=== PATIENT | female | born 1955 | race Asian ===

== ENCOUNTER 2018-07-21 10:53 | Inpatient (IN) | payer OTHER ==
[~2018-07-21] VITALS: Ht 152.4 cm; Wt 68.0 kg
--- NOTE | 2018-07-21 10:56 | NUR ---
pt ambulated to er bed 03
[2018-07-21 11:00] VITALS: BP 186/91
--- NOTE | 2018-07-21 11:06 | NUR ---
BIB DAUGHTER SEND BY PMD WITH C/O ABDNORMAL LAB VALUES HGB 6.4, CRP 24, ESR 87 ACCOMPANIED BY GENERALYZED WEAKNESS AND FATIGUE WITH NAUSEA. SKIN PALE/YELLOW IN COLOR, DENIES FEVERS/CHILLS. RESP EVEN AND UNLABORED, IN NAD. DTR AT BEDSIDE. ABD ROUND, SOFT, NT TO PALPATION. AWAITING ER MD WORLEY. HX; HTN RX; DENIES
--- NOTE | 2018-07-21 11:23 | NUR ---
DR SALDIVAR IN ROOM FOR RECTAL EXAM, I WAS IN ROOM FOR ASSIST.
[2018-07-21 11:41] LABS: MEAN CORPUSCULAR HEMOGLOBIN 31 pg (27-31); MEAN CORPUSCULAR HGB CONC 32 g/dL (33-37); MEAN CORPUSCULAR VOLUME 96.7 fL (80-94); PLATELET COUNT (AUTO) 174 K/uL (140-450); RED BLOOD CELL COUNT(AUTO) 1.97 MIL/uL (4.20-5.40); RED CELL DISTRIBUTION WIDTH 17.3 % (11.6-13.7); WHITE BLOOD COUNT (AUTO) 3.6 K/uL (4.8-10.8)
[2018-07-21 12:02] LABS: HEMATOCRIT 19.1 % (36-48); HEMOGLOBIN 6.2 g/dL (12.0-16.0)
[2018-07-21 12:03] LABS: ANION GAP 7.5 (8-16); CARBON DIOXIDE 27.7 mmol/L (21-32); CREATININE 0.9 mg/dL (0.6-1.3); POTASSIUM 4.2 mmol/L (3.5-5.1)
[2018-07-21 12:09] LABS: ALBUMIN 2.9 g/dL (3.4-5.0); PROTHROMBIN TIME 10.1 secs (10.8-13.4); TOTAL BILIRUBIN 0.3 mg/dL (0.0-1.0)
[2018-07-21] MEDS ORDERED: NACL 0.9% 1,000 ML IV SCH (12:21)
[2018-07-21] MEDS ORDERED: ONDANSETRON 4 MG/2 ML VIAL IVP PRN (12:25)
[2018-07-21 12:55] LABS: APPEARANCE,URINE CLEAR (CLEAR); BILIRUBIN,URINE NEGATIVE (NEGATIVE); BLOOD, URINE NEGATIVE (NEGATIVE); COLOR,URINE YELLOW (YELLOW); LEUKOCYTE ESTERASE ,URINE NEGATIVE (NEGATIVE); NITRITE, URINE NEGATIVE (NEGATIVE); UGLUCOSE NEGATIVE (NEGATIVE)
--- NOTE | 2018-07-21 13:30 | NUR ---
Patient will be admitted to care of DR MCCAULEY. Admited to M/S Will go to room 106A Belongings list completed. Report to .
--- NOTE | 2018-07-21 13:35 | NUR ---
RECEIVED BEDSIDE REPORT FROM ER NURSE. PATIENT IS AWAKE, ALERT AND ORIENTEDX4. NO SIGNS OF DISTRESS ON ROOM AIR. GAIT IS STEADY. ADMISSION VITALS ARE STABLE. REG DIET. R FA 20G INFUSING NS AT 75. CLEAN, DRY AND INTACT. BED IN LOW POSITION. CALL LIGHT WITHIN REACH. WILL CONTINUE TO MONITOR THE PATIENT. MRSA DONE. PATIENT REFUSES SOCKS, SHE WANTS TO USE HER SLIPPERS.
[2018-07-21 13:57] LABS: EOSINOPHILS % (MANUAL) 1 % (0-4); LYMPHOCYTES % (MANUAL) 64 % (20-46); MONOCYTES % (MANUAL) 22 % (5-12)
[2018-07-21 14:00] VITALS: BP 145/75
--- NOTE | 2018-07-21 14:10 | NUR ---
ADMINISTERED IVF. PATIENT TOLERATING WELL. IV IS CLEAN, DRY AND INTACT. WILL CONTINUE TO MONITOR THE PATIENT
--- NOTE | 2018-07-21 14:38 | NUR ---
PATIENT WALKING TO THE RESTROOM. GAIT IS STEADY. WILL CONTINUE TO MONITOR
[2018-07-21 16:00] VITALS: BP 126/84
--- NOTE | 2018-07-21 16:05 | NUR ---
GAVE PATIENT PRUNE JUICE AND APPLE JUICE. PER PATIENTS DAUGHTER SHE HAS NOT HAD A BM IN 1 WEEK AND THAT SHE HAS LOW INTAKE BUT THAT IS HER NORMAL. PATIENT DRINKING JUICE. BED IN LOW POSITION. CALL LIGHT WITHIN REACH, WILL CONTINUE TO MONITOR
--- NOTE | 2018-07-21 16:43 | NUR ---
PATIENT SITTING IN BED WATCHING TV. NO SIGNS OF DISTRESS. BED IN LOW POSITION. CALL LIGHT WITHIN REACH. WILL CONTINUE TO MONITOR
--- NOTE | 2018-07-21 19:15 | NUR ---
GAVE BEDSIDE REPORT TO HOSPITAL LABORATORY TECHNICIAN NURSE. PATIENT ENDORSED IN STABLE CONDITION
--- NOTE | 2018-07-21 19:20 | NUR ---
RECEIVED PT FROM TATYANA RN PT AAOX4 AMBULATORY ,NOT DISTRESS NOTED FAMILY AT BED SIDE
[2018-07-21 20:00] VITALS: BP 150/75
--- NOTE | 2018-07-21 22:00 | NUR ---
PT AMULATES TOTHE RESTROOM NOT DISTRESS NOTED
[2018-07-22] VITALS: BP 174/83
[2018-07-22] MEDS: ACETAMINOPHEN 325 MG TAB PO PRN (00:21)
--- NOTE | 2018-07-22 00:50 | NUR ---
DR MCMILLAN RETAIL ROUTE SUPERVISOR FOR DR MCCAULEY WAS NOTIFY PT HIGH BP
[2018-07-22 01:30] VITALS: BP 151/58
[2018-07-22 04:00] VITALS: BP 152/76
--- NOTE | 2018-07-22 04:00 | NUR ---
SPONGE BATH GIVEN LINEN CHANGED REPOSITIONED DENIES ANY PAIN OR DISCOMFORT AMBULATORY
--- NOTE | 2018-07-22 05:33 | NUR ---
PT SLEEPING WELL MONITORING BP NOT DISTRESS NOTED NOT SIGNS OF PAIN
--- NOTE | 2018-07-22 06:18 | NUR ---
REMAIN STALE DENIES ANY PAIN OR DISCOMFORT AMBULATES TO THE RESTROOM VOIDING WELL
[2018-07-22 07:12] LABS: MEAN CORPUSCULAR HEMOGLOBIN 32 pg (27-31); MEAN CORPUSCULAR HGB CONC 33 g/dL (33-37); MEAN CORPUSCULAR VOLUME 96.6 fL (80-94); PLATELET COUNT (AUTO) 173 K/uL (140-450); RED BLOOD CELL COUNT(AUTO) 1.85 MIL/uL (4.20-5.40); RED CELL DISTRIBUTION WIDTH 17.1 % (11.6-13.7); WHITE BLOOD COUNT (AUTO) 3.1 K/uL (4.8-10.8)
[2018-07-22 07:16] LABS: HEMOGLOBIN 5.9 g/dL (12.0-16.0)
[2018-07-22 07:17] LABS: HEMATOCRIT 17.9 % (36-48)
--- NOTE | 2018-07-22 07:25 | NUR ---
RECEIVED REPORT FRO PM NURSE AT THE BEDSIDE. PT AWAKE AND ALERT. HAS THE IV SITE ON RT FA 20 G.ADMITTED WITH DX OF SYMPTOMATIC ANEMIA. GOT CALL FROM LAB REGARDING H&H. HGB 5.9, HCT 17.9. WILL INFORM DR MCCAULEY. PER PM NURS3E, NO BLOOD TRANSFUSION HAS BEEN DONE IN PT. STATES , YET TO SEE THE PT.ON FALL RISK. PLACE CALL LIGHT WITHIN PT REACH. ASKED PT TO USE CALL LIGHT FOR ANY HELP. VERBALIZED UNDERSTANDING OF TEACHING. WILL CONTINUE TO MONITOR PT.
[2018-07-22 07:27] LABS: ALBUMIN 2.7 g/dL (3.4-5.0); ANION GAP 10.2 (8-16); CARBON DIOXIDE 26.8 mmol/L (21-32); CREATININE 0.8 mg/dL (0.6-1.3); TOTAL BILIRUBIN 0.3 mg/dL (0.0-1.0)
--- NOTE | 2018-07-22 07:40 | NUR ---
DR MCCAULEY NOTIFIED OF CRITICAL VALUE FOR H&H. TO SEE THE PT. MADE AWARE OF THE HIGH BP . WILL CONTINUE TO MONITOR PT.
[2018-07-22 07:45] LABS: BASOPHILS % (MANUAL) 0 % (0-2); EOSINOPHILS % (MANUAL) 2 % (0-4); LYMPHOCYTES % (MANUAL) 60 % (20-46); MONOCYTES % (MANUAL) 20 % (5-12)
[2018-07-22 08:00] VITALS: BP 179/74
--- NOTE | 2018-07-22 08:10 | NUR ---
INFORMED PT THAT SHE NEEDS TO HAVE BLOOD TRANSFUSION.ASKED IF SHE CAN SIGN THE CONSENT FORM. PT WANTED TO TALK TO HER DAUGHTER BEFORE SHE SIGNS THE CONSENT FORM. DAUGHTER CONTACTED TWICE. WILL TRY AGAIN LATER. PT HAS ORDER FOR BLOOD TRANSFUSION.
--- NOTE | 2018-07-22 08:15 | NUR ---
DAUGHTER YANI CALLED. LUCIEN FOR BLOOD TRANSFUSION. TALKED TO MOTHER. PT SIGNED THE CONSENT FORM. WILL WORK ON BLOOD TRANSFUSION ON PT.
[2018-07-22] MEDS: amLODIPine 5 MG TAB PO SCH (09:10)
--- NOTE | 2018-07-22 11:10 | NUR ---
ASSESSED PT , HAVING BLOOD TRANSFUSION. BP 166/65, HR 73, T 97.6, RR 18, PAIN 0/10. ADMINISTERED CLONIDINE TO PT. WILL REASSESS PT IN HALF HOUR AGAIN. NO SIGN OF DISTRESS. PT TOLERATING WELL. WILL CONTINUE TO MONITOR PT.
[2018-07-22] MEDS: cloNIDine 0.1 MG TAB PO PRN (11:13)
--- NOTE | 2018-07-22 11:18 | NUR ---
BLOOD TRANSFUSION STARTED AT 1040 . VERIFIED WITH SECOND NURSE THE BLOOD PRODUCT. PRE VS NOTED T 98.0, , HR 74, R 14, PO2 SAT 985 RA, BP 155/72. BLOOD INFUSING WELL. NO SIGN OF DISTRESS NOTED. PT IN CONTINUOS MONITORING BLOOD TRANSFUSION PROTOCOL. PT TOLERATING WELL [id number] THE INFORMATION CHARTED ON WRONG PT, ON 104 A.
--- NOTE | 2018-07-22 11:40 | NUR ---
CHECKED ON PT. VS NOTED BP 168/64, T 98.4, RR 16, HR 70, PAIN 0/10. INCREASED HER INFUSION FROM 60 ML/HR TO 100 ML/HR. WILL CONTINUE TO MONITOR.
--- NOTE | 2018-07-22 13:40 | NUR ---
BLOOD INFUSION COMPLETED AT 1340. WAITING FOR THE BLOOD IN THE TUBING TO BE DONE . VS NORMAL NOTED BP 130/67, HR 74, PAIN 0/10, O2 SAT 98%RA, RR 16. PT WENT TO USE RESTROOM. NO SIGN OF DISTRESS NOTED. WILL INFUSE SECOND BAG OF INFUSION . WILL CONTINUE TO MONITOR PT.
--- NOTE | 2018-07-22 15:45 | NUR ---
STARTED BLOOD TRANSFUSION SECOND BAG TO THE PT. TOLERATED WELL. SECOND NURSE [place] VERIFIED THE BLOOD PRODUCT. VS NOTED BEFORE TRANSFUSION ARE BP 139/59, T 98.5, O2 SAT 97%, RR 18, HR 70. NO SIGN OF DISTRESS NOTED DURING THE TRANSFUSION OF THE BLOOD . WILL CONTINUE TO MONITOR PT BLOOD TRANSFUSION PROTOCOL.
[2018-07-22 16:00] VITALS: BP 136/74
--- NOTE | 2018-07-22 16:00 | NUR ---
VS NOTED BP 136/74, HR 73, RR 16, T 98.5, DENIES ANY PAIN. PT O2 SAT 98%. NO SIGN OF DISTRESS. WILL CONTINUE ASSESSING PT BLOOD TRANSFUSION PROTOCOL.
--- NOTE | 2018-07-22 18:45 | NUR ---
BLOOD TRANSFUSION TIME OF COMPLETION 1844. IV TUBING INFUSING AT THIS TIME. NO SIGN OF DISTRESS. WILL CONTINUE TO MONITOR PT.
--- NOTE | 2018-07-22 19:30 | NUR ---
ENDORSED PT TO PM NURSE FOR CONTINUITY OF CARE. PT IN STABLE CONDITION. PT BLOOD TRANSFUSION OF SECOND BAG COMPLETED AT 1845. NO SIGN OF DISTRESS. ENDORSED THIRD BAG OF BLOOD TRANSFUSION TO PM NURSE.
--- NOTE | 2018-07-22 19:31 | NUR ---
RECEIVED PT FROM DAY SHIFT NURSE JORGE-RN AT BEDSIDE. PT RESTING IN BED, AOX4, ON ROOM AIR WITH RIGHT FA #20G. DISCUSSED PLAN OF CARE AND PT VERBALIZED UNDERSTANDING. NO S/S OF RESPIRATORY DISTRESS OR DISCOMFORT NOTED AT THIS TIME. BED IN LOWEST POSITION, BED BREAKS ON, BOTH SIDE RAILS UP. BED SIDE TABLE AND CALL LIGHT ARE WITHIN REACH. WILL CONTINUE TO MONITOR.
[2018-07-22 20:00] VITALS: BP 138/64
--- NOTE | 2018-07-22 20:00 | NUR ---
VITAL SIGNS TAKEN AND TOLERATED WELL. NO S/S OF RESPIRATORY DISTRESS OR DISCOMFORT NOTED AT THIS TIME. WILL CONTINUE TO MONITOR.
--- NOTE | 2018-07-22 22:13 | NUR ---
THIRD BAG OF RBC STARTED. PT TOLERATING WELL. NO S/S OF RESPIRATORY DISTRESS OR DISCOMFORT NOTED AT THIS TIME. WILL CONTINUE TO MONITOR.
[2018-07-23] VITALS: BP 166/78
--- NOTE | 2018-07-23 01:05 | NUR ---
BLOOD TRANSFUSION HAS COMPLETED. NO S/S OF RESPIRATORY DISTRESS OR DISCOMFORT. BP HAD STEADILY ELEVATED AND WILL MEDICATE WITH CATAPRES. PT C/O HEADACHE- WILL MEDICATE WITH TYLENOL. WILL CONTINUE TO MONITOR.
[2018-07-23] MEDS: ACETAMINOPHEN 325 MG TAB PO PRN (01:16)
[2018-07-23] MEDS: cloNIDine 0.1 MG TAB PO PRN (01:28)
--- NOTE | 2018-07-23 02:00 | NUR ---
PT SLEEPING IN BED. NO S/S OF RESPIRATORY DISTRESS OR DISCOMFORT NOTED AT THIS TIME. WILL CONTINUE TO MONITOR.
--- NOTE | 2018-07-23 04:00 | NUR ---
PT CONTINUES TO SLEEP. NO S/S OF RESPIRATORY DISTRESS OR DISCOMFORT NOTED AT THIS TIME. WILL CONTINUE TO MONITOR
--- NOTE | 2018-07-23 06:00 | NUR ---
PT RESTING IN BED. NO S/S OF RESPIRATORY DISTRESS OR DISCOMFORT NOTED AT THIS TIME. WILL CONTINUE TO MONITOR.
[2018-07-23 06:38] LABS: HEMATOCRIT 31.6 % (36-48); HEMOGLOBIN 10.6 g/dL (12.0-16.0); MEAN CORPUSCULAR HEMOGLOBIN 30 pg (27-31); MEAN CORPUSCULAR HGB CONC 34 g/dL (33-37); MEAN CORPUSCULAR VOLUME 89.3 fL (80-94); PLATELET COUNT (AUTO) 157 K/uL (140-450); RED BLOOD CELL COUNT(AUTO) 3.54 MIL/uL (4.20-5.40); RED CELL DISTRIBUTION WIDTH 19.1 % (11.6-13.7); WHITE BLOOD COUNT (AUTO) 3.5 K/uL (4.8-10.8)
[2018-07-23 06:58] LABS: ALBUMIN 2.9 g/dL (3.4-5.0); ANION GAP 8.4 (8-16); CARBON DIOXIDE 28.8 mmol/L (21-32); CREATININE 0.9 mg/dL (0.6-1.3); POTASSIUM 4.2 mmol/L (3.5-5.1); TOTAL BILIRUBIN 0.6 mg/dL (0.0-1.0)
[2018-07-23 07:11] LABS: EOSINOPHILS % (MANUAL) 1 % (0-4); LYMPHOCYTES % (MANUAL) 65 % (20-46); MONOCYTES % (MANUAL) 14 % (5-12)
--- NOTE | 2018-07-23 07:14 | NUR ---
ENDORSED PT CARE TO DAY SHIFT NURSE SITAL-RN FOR CONTINUITY OF CARE.
[2018-07-23 08:00] VITALS: BP 119/74
[2018-07-23] MEDS: amLODIPine 5 MG TAB PO SCH (08:43)
[2018-07-23] MEDS ORDERED: MULT1SGL58 PO (09:10)
--- NOTE | 2018-07-23 10:31 | NUR ---
PATIENT HAS BEEN SCREENED AND CATEGORIZED MODERATE NUTRITION RISK. PATIENT WILL BE SEEN WITHIN 3-5 DAYS OF ADMISSION. 07/24/18 07/26/18 BRIANNA DAVIS MBA, RD
--- NOTE | 2018-07-23 12:00 | NUR ---
CHECKED ON PT. LYING ON HER BED. INFORMED HER THAT DC ORDER ARE AVAILABLE. WILL WORK ON HER DC PAPER. PT TO CALL THE FAMILY MEMBER FOR RIDE. PT STABLE. HAD BOWEL MOVEMENT . WILL CONTINUE TO MONITOR PT.
--- NOTE | 2018-07-23 14:30 | NUR ---
PT SIGNED THE DC PAPER. EDUCATED HER TO EAT THE FOOD THAT ARE RICH IN IRON THAT WILL HELP TO PREVENT ANEMIA. INFORMED TO DRINK PLENTY OF FRUITS AND VEGETABLES AND WATER TO AVOID CONSTIPATION. INFORMED PT TO FOLLOW UP WITH DR MCCAULEY PER DC INSTRUCTION AND TO FOLLOW UP WITH PCP IN 1-2 WEEKS OF DC. VERBALIZED UNDERSTANDING. PT WENT HOME WITH ALL HER BELONGINGS. PT IN STABLE CONDITION.
--- NOTE | 2018-07-24 08:17 | NUR ---
RETRO REVIEW FAXED TO [facility] NO DISCHARGE SUMMARY
[2018-07-25 06:21] LABS: FOLIC ACID > 20.00 ng/mL (>3.0)
--- NOTE | 2018-07-27 08:08 | NUR ---
FAXED DISCHARGE SUMMARY TO [facility] [phone]
== END 2018-07-23 14:30 | disposition home or self-care (01) | DRG 663 ==
LOC: MED 10:53 → MTU 13:08
PROVIDERS: ADMIT Internal Medicine; ATTEND Internal Medicine
PROC: 30233N1 Transfusion of Nonautologous Red Blood Cells into Peripheral Vein, Percutaneous Approach (ICD-10-PCS; principal; 2018-07-22)
DX: D53.9 Nutritional anemia, unspecified (principal); E44.0 Moderate protein-calorie malnutrition; D72.819 Decreased white blood cell count, unspecified; E66.9 Obesity, unspecified; I12.9 Hypertensive chronic kidney disease with stage 1 through stage 4 chronic kidney disease, or unspecified chronic kidney disease; N18.2 Chronic kidney disease, stage 2 (mild); Z68.29 Body mass index [BMI] 29.0-29.9, adult
CPT/HCPCS: 36415; 71045; 80053; 81003; 81025; 82607; 82746; 83540; 83880; 84484; 85025; 85610; 85730; 86886; 86900; 86901; 86920; 87081; 93005; 99285; J7030; P9016

== ENCOUNTER 2019-04-07 17:12 | Inpatient (IN) | payer OTHER ==
[~2019-04-07] VITALS: Ht 149.9 cm; Wt 73.0 kg
[~2019-04-07 17:12] MED LIST: MULT1SGL58 PO
[2019-04-07 17:19] VITALS: BP 161/79
--- NOTE | 2019-04-07 17:50 | NUR ---
63 Y FEMALE BIB FAMILY C/O FATIGUE X2 WEEKS. PT REPORTS STRETCHING EARLIER TODAY AND FEELING LIKE HER WHOLE BODY WAS ABOUT TO GIVE. PT REPORTS LIKE SHE IS ABOUT TO FALL DOWN. PT REPORTS BEING CONSTIPATED X2 WEEKS. DENIES PAIN. PT DENIES SOB, CP, NUMBNESS. PT SPEAKING IN FULL, COMPLETE SENTENCES. LANGUAGE BARRIER, FAMILY PRESENT TO TRANSLATE. PT ALERT AND ORIENTED X4. VSS. PT PLACED ON MONITOR. BED IS DOWN, LOCKED, BED RIAL X 1, ERMD TO SEE PT. MEDHX:HLD, HTN RX:DENIES
--- NOTE | 2019-04-07 17:54 | NUR ---
PT AMB TO RESTROOM FOR URINE SAMPLE
[2019-04-07] MEDS ORDERED: NACL 0.9% 1,000 ML IV ONE (18:10)
--- NOTE | 2019-04-07 18:13 | NUR ---
XRAY AT BEDSIDE
[2019-04-07 18:33] LABS: BASOPHILS % (AUTO) 0.3 % (0.0-2.0); EOSINOPHILS % (AUTO) 0.6 % (0.0-4.0); LYMPHOCYTES # (AUTO) 2.7 K/uL (2.5-16.5); LYMPHOCYTES % (AUTO) 64.7 % (20.5-51.1); MEAN CORPUSCULAR HEMOGLOBIN 32 pg (27-31); MEAN CORPUSCULAR HGB CONC 33 g/dL (33-37); MEAN CORPUSCULAR VOLUME 95.3 fL (80-94); MONOCYTES # (AUTO) 0.9 K/uL (0.8-1.0); MONOCYTES % (AUTO) 21.4 % (1.7-9.3); NEUTROPHILS # (AUTO) 0.5 K/uL (1.8-7.7); PLATELET COUNT (AUTO) 159 K/uL (140-450); RED CELL DISTRIBUTION WIDTH 17.2 % (11.6-13.7); WHITE BLOOD COUNT (AUTO) 4.2 K/uL (4.8-10.8)
--- NOTE | 2019-04-07 18:34 | NUR ---
EMT AT BEDSIDE FOR EKG
[2019-04-07 18:36] LABS: HEMATOCRIT 17.2 % (36-48); HEMOGLOBIN 5.7 g/dL (12.0-16.0)
--- NOTE | 2019-04-07 18:37 | NUR ---
HEMOGLOBIN 5.7 AND HEMATOCRIT 17.3
[2019-04-07 18:38] LABS: ANION GAP 10.3 (8-16); CARBON DIOXIDE 27.6 mmol/L (21-32); CREATININE 1.3 mg/dL (0.6-1.3); POTASSIUM 3.9 mmol/L (3.5-5.1)
[2019-04-07 18:44] LABS: TOTAL BILIRUBIN 0.4 mg/dL (0.0-1.0)
[2019-04-07 18:52] LABS: CREATINE KINASE MB 0.7 ng/mL (0-3.6)
--- NOTE | 2019-04-07 19:13 | NUR ---
REPORT GIVEN TO LUKE ALBRIGHT, TRANSFER OF CARE AT THIS TIME
[2019-04-07 21:35] VITALS: BP 151/60
--- NOTE | 2019-04-07 21:35 | NUR ---
Admitted from ER TO MED SURGICAL UNIT, with chief complaint of GENERALIZED WEAKNESS FOR 2 WEEKS NOW. 63 y/o ,Female, Cooperative, AWAKE, A/OX4. AMANDA SPEAKING ABLE TO UNDERSTAND AND SPEAK SOME [place]. COMPLETE ADMISSION DATA TAKEN WITH HELP OF MASTER AUTOMOTIVE GLASS TECHNICIAN LEIA, #[id number]. PATIENT UNDERSTAND HER HEMOGLOBIN IS LOW - 5.7, HCT - 17.2 AND SHE WILL BE HAVING BLOOD TRANSFUSION, CONSENT SIGNED IN ER. AMBULATING INDEPENDENTLY, SKIN INTACT. DENIES PAIN 0/10.oriented to call light, bed, phone,television, bathroom, smoking policy,visiting hours, procedures, ID bracelet on. Belongings list checked. Addendum: 04/08/19 at 0247 by Trisha Roa LVN CORRECTION: PATIENT IS MED SURG OBSERVATION CATEGORY.
--- NOTE | 2019-04-07 21:35 | NUR ---
Patient's Plan of Care was discussed and reviewed with DWIGHT: ALEXEI
--- NOTE | 2019-04-07 21:40 | NUR ---
Admited to Med-Surg. Patient went to room 111-B via wheelchair by RN, patient acting appropriatly; patient states 0/10 pain at this time. Belongings list completed. Report to JOSE RAMON Leung.
--- NOTE | 2019-04-07 21:48 | NUR ---
CALL TO PT DAUGHTER CAT, PT HAS BEEN ADMITTED TO BED 111-B IN STABLE CONDITION AND ACTING APPROPRIATLY.
--- NOTE | 2019-04-07 21:53 | NUR ---
CALL TO CHARGE NURSE ON MED-SURG FLOOR, PER PT DAUGHTERS REQUEST WOULD LIKE HER DAUGHTER TO GET A SANDWICH.
[2019-04-07] MEDS ORDERED: cloNIDine 0.1 MG TAB PO PRN (23:00)
--- NOTE | 2019-04-07 23:42 | NUR ---
CONSENT SIGNED AND IN CHART, BLOOD TRANSFUSION INFORMATION SIGNED AND LEFT AT BEDSIDE.
[2019-04-08] VITALS: BP 155/61
--- NOTE | 2019-04-08 00:10 | NUR ---
V/S STABLE, STARTED 1 UNIT OF BLOOD WITH CHARGE NURSE SAMIRA. 50 ML NS INFUSED IN PATIENT PRIOR TO BLOOD TRANSFUSION.
--- NOTE | 2019-04-08 01:00 | NUR ---
ASSISTED TO BR TO VOID, BACK TO BED AFTER VOIDING.
--- NOTE | 2019-04-08 02:00 | NUR ---
BLOOD TRANSFUSION STILL ON-GOING, WILL CONTINUE TO MONITOR FOR ANY ALLERGIC REACTION.
--- NOTE | 2019-04-08 03:10 | NUR ---
BLOOD TRANSFUSION FINISHED. NO ALLERGIC REACTION NOTED.
--- NOTE | 2019-04-08 03:15 | NUR ---
100 ML NS INFUSED WITH BLOOD TRANSFUSION, TOTAL OF 150 NS. SALINE LOCK PATIENT ORDERED.
[2019-04-08 04:00] VITALS: BP 154/79
--- NOTE | 2019-04-08 04:10 | NUR ---
STILL SLEEPING COMFORTABLY IN BED.
--- NOTE | 2019-04-08 05:30 | NUR ---
AWAKE, AMBULATED TO BR TO VOID, WENT BACK TO BED AFTER VOIDING.
--- NOTE | 2019-04-08 06:40 | NUR ---
AWAKE IN BED, INSTRUCTED TO CALL NURSE WHEN HAD A BM FOR OCCULT BLOOD TEST TO BE SENT TO LABORATORY. VERBALIZED UNDERSTANDING. CONDITION REMAIN STABLE. WILL ENDORSE TO AM SHIFT NURSE FOR CONTINUITY OF CARE.
--- NOTE | 2019-04-08 07:15 | NUR ---
ENDORSED TO AM SHIFT NURSE FOR CONTINUITY OF CARE.
--- NOTE | 2019-04-08 07:17 | NUR ---
RECEIVED BEDSIDE REPORT FROM PRESCRIPTIONIST NURSE ALEXEI FOR CONTINUITY OF CARE. PATIENT WAS AWAKE AND WATCHING TV ON BED. PATIENT IS AOX4. PATIENT IS ABLE TO MAKE NEEDS KNOWN AND FOLLOW SIMPLE COMMANDS. PATIENT DENIED PAIN AND SOB. RESPIRATION EVEN AND UNLABORED ON RA. NO SIGNS OF DISTRESS NOTED. IV ON RAC 20 G, NOT INFUSING AT THIS TIME, SL. SKIN INTACT AND CLEAN. PATIENT IS ABLE TO AMBULATE. DISCUSSED PLAN OF CARE WITH PATIENT AND PATIENT VERBALIZED UNDERSTANDING. SAFETY PRECAUTION IN PLACE. BED IN LOW POSITION AND CALL LIGHT WITHIN REACH. INSTRUCTED PATIENT TO USE THE CALL LIGHT FOR ANY ASSISTANCE, AND PATIENT VERBALIZED UNDERSTANDING.
[2019-04-08 07:56] LABS: BASOPHILS % (AUTO) 0.3 % (0.0-2.0); EOSINOPHILS % (AUTO) 0.5 % (0.0-4.0); HEMATOCRIT 20.9 % (36-48); HEMOGLOBIN 7.1 g/dL (12.0-16.0); LYMPHOCYTES # (AUTO) 2.1 K/uL (2.5-16.5); LYMPHOCYTES % (AUTO) 59.9 % (20.5-51.1); MEAN CORPUSCULAR HEMOGLOBIN 32 pg (27-31); MEAN CORPUSCULAR HGB CONC 34 g/dL (33-37); MEAN CORPUSCULAR VOLUME 93.2 fL (80-94); MONOCYTES # (AUTO) 0.9 K/uL (0.8-1.0); MONOCYTES % (AUTO) 25.1 % (1.7-9.3); NEUTROPHILS # (AUTO) 0.5 K/uL (1.8-7.7); NEUTROPHILS % (AUTO) 14.2 % (42.2-75.2); PLATELET COUNT (AUTO) 135 K/uL (140-450); RED BLOOD CELL COUNT(AUTO) 2.24 MIL/uL (4.20-5.40); RED CELL DISTRIBUTION WIDTH 16.3 % (11.6-13.7); WHITE BLOOD COUNT (AUTO) 3.5 K/uL (4.8-10.8)
[2019-04-08 08:00] VITALS: BP 178/74
[2019-04-08 08:05] LABS: ANION GAP 11.1 (8-16); CARBON DIOXIDE 26.2 mmol/L (21-32); CREATININE 0.9 mg/dL (0.6-1.3); POTASSIUM 4.3 mmol/L (3.5-5.1)
--- NOTE | 2019-04-08 08:43 | NUR ---
PATIENT HAS BEEN SCREENED AND CATEGORIZED MODERATE NUTRITION RISK. PATIENT WILL BE SEEN WITHIN 3-5 DAYS OF ADMISSION. 04/10/19KAELYN RAMESH RD
[2019-04-08] MEDS: DOCUSATE SODIUM 100 MG GELCAP PO SCH ×2 (08:48→21:38)
--- NOTE | 2019-04-08 08:49 | NUR ---
BP 178/74 AND PULSE 89, MEDICATED WITH CATARPES 0.1 MG PER MD ORDER. PATIENT TOLERATED WELL. PATIENT IS AWAKE AND WATCHING TV ON BED. DENIES OF PAIN AND DIZZINESS. NO SIGNS OF DISTRESS NOTED. INSTRUCTED PATIENT TO USE THE HAT IN THE TOILET WHEN SHE HAS BM TO COLLECT OCCULT BLOOD, AND PATIENT VERBALIZED UNDERSTANDING. BED IN LOW POSITION AND CALL LIGHT WITHIN REACH. INSTRUCTED PATIENT TO USE THE CALL LIGHT FOR ANY ASSISTANCE AND PATIENT WAS AWARE.
--- NOTE | 2019-04-08 11:08 | NUR ---
DR TUTTLE IS TALKING TO PATIENT AT BEDSIDE. PATIENT IS AWAKE AND SITTING UP ON BED. ABLE TO COMMUNICATE APPROPRIATELY. NO SIGNS OF DISTRESS NOTED. SAFETY MEASURES IN PLACE.
[2019-04-08 12:00] VITALS: BP 138/60
[2019-04-08] MEDS: FERROUS SULFATE 325 MG TABEC PO SCH ×2 (12:03→17:25)
--- NOTE | 2019-04-08 12:55 | NUR ---
ADMINISTERED MED MD ORDER, PATIENT TOLERATED WELL. PATIENT IS SITTING UP ON BED. NO SIGNS OF DISTRESS NOTED. SAFETY MEASURES IN PLACE.
--- NOTE | 2019-04-08 13:25 | NUR ---
PATIENT HAS A SMALL BM. COLLECTED OCCULT BLOOD AND DELIVERED TO LAB.
--- NOTE | 2019-04-08 15:25 | NUR ---
PATIENT IS TALKING TO DAUGHTER AT BEDSIDE. DENIES DIZZINESS AND SOB. NO SINGS OF DISTRESS NOTED. SAFETY MEASURES IN PLACE.
[2019-04-08 16:00] VITALS: BP 144/71
--- NOTE | 2019-04-08 17:26 | NUR ---
PATIENT IS RESTING ON BED AT THIS TIME. NO SIGNS OF DISTRESS NOTED. SAFETY MEASURES IN PLACE. INSTRUCTED PATIENT TO USE THE CALL LIGHT FOR ANY ASSISTANCE AND PATIENT WAS AWARE.
--- NOTE | 2019-04-08 18:15 | NUR ---
PICKED UP PACK OF RBC FROM LAB. VITAL SIGNS TAKEN PRIOR TO BLOOD TRANSFUSION. PATIENT IS AWAKE AND WATCHING TV ON BED. DENIES DIZZINESS, SOB AND PAIN. NO SIGNS OF DISTRESS NOTED. SAFETY MEASURES IN PLACE.
--- NOTE | 2019-04-08 18:30 | NUR ---
NO BLOOD TRANSFUSION ALLERGIC REACTION. PATIENT TOLERATED WELL. PATIENT IS RESTING ON BED. NO SIGNS OF DISTRESS NOTED. VITAL SIGNS WAS MONITORING Q15 MINS BY BEDSIDE. SAFETY MEASURES IN PLACE.
--- NOTE | 2019-04-08 19:20 | NUR ---
ENDORSED PATIENT AT BEDSIDE TO ETL INFORMATICA DEVELOPER NURSE FOR CONTINUITY OF CARE. PATIENT IS RESTING ON BED AT THIS TIME. NO SIGNS OF DISTRESS NOTED. VITAL SIGNS ARE WITHIN PATIENT'S REGULAR INTERVAL. VITAL SIGNS ARE BEING MONITOR ON VITAL SIGN MACHINE.
--- NOTE | 2019-04-08 19:22 | NUR ---
Received endorsement from AM shift RN; patient is A/Ox4, able to make needs known, ambulatory with assist, speaks Urdu Laotian. Patient watching TV; introduced self, updated board. No SOB or distress noted, on room air. IV site on right AC, 20 gauge, intact, running PRBC at 100mL/hr. Skin intact. Bed in the lowest position, call light within reach. Initial assessment done. Will continue to monitor.
--- NOTE | 2019-04-08 21:35 | NUR ---
Due meds given, no distress noted.
--- NOTE | 2019-04-08 22:00 | NUR ---
Blood transfusion completed at this time. Vitals stable.
[2019-04-09] VITALS: BP 146/67
--- NOTE | 2019-04-09 00:10 | NUR ---
Vitals taken, no SOB or distress noted.
--- NOTE | 2019-04-09 02:20 | NUR ---
Rounds made; patient asleep on left lateral side. No distress noted.
--- NOTE | 2019-04-09 04:55 | NUR ---
Checks made; patient asleep, eyes closed, visible chest rise and fall noted.
--- NOTE | 2019-04-09 07:15 | NUR ---
Endorsed patient to AM shift RN for continuity of care; patient in stable condition.
--- NOTE | 2019-04-09 07:25 | NUR ---
ECEIVED BEDSIDE REPORT FROM CIVIL PREPAREDNESS COORDINATOR NURSE FOR CONTINUITY OF CARE. PATIENT WAS AWAKE AND WATCHING TV ON BED. PATIENT IS AOX4. PATIENT IS ABLE TO MAKE NEEDS KNOWN AND FOLLOW SIMPLE COMMANDS. PATIENT DENIED PAIN AND SOB. RESPIRATION EVEN AND UNLABORED ON RA. NO SIGNS OF DISTRESS NOTED. IV ON RAC 20 G, NOT INFUSING AT THIS TIME, SL. SKIN INTACT AND CLEAN. PATIENT IS ABLE TO AMBULATE. DISCUSSED PLAN OF CARE WITH PATIENT AND PATIENT VERBALIZED UNDERSTANDING. SAFETY PRECAUTION IN PLACE. BED IN LOW POSITION AND CALL LIGHT WITHIN REACH. INSTRUCTED PATIENT TO USE THE CALL LIGHT FOR ANY ASSISTANCE, AND PATIENT VERBALIZED UNDERSTANDING.
[2019-04-09 08:00] VITALS: BP 155/68
[2019-04-09 08:09] LABS: HEMATOCRIT 27.2 % (36-48); HEMOGLOBIN 9.3 g/dL (12.0-16.0); MEAN CORPUSCULAR HEMOGLOBIN 32 pg (27-31); MEAN CORPUSCULAR HGB CONC 34 g/dL (33-37); MEAN CORPUSCULAR VOLUME 91.6 fL (80-94); PLATELET COUNT (AUTO) 135 K/uL (140-450); RED BLOOD CELL COUNT(AUTO) 2.96 MIL/uL (4.20-5.40); RED CELL DISTRIBUTION WIDTH 16.9 % (11.6-13.7); WHITE BLOOD COUNT (AUTO) 4.1 K/uL (4.8-10.8)
[2019-04-09 08:23] LABS: ALBUMIN 2.9 g/dL (3.4-5.0); CARBON DIOXIDE 26.2 mmol/L (21-32); TOTAL BILIRUBIN 0.5 mg/dL (0.0-1.0)
[2019-04-09] MEDS: DOCUSATE SODIUM 100 MG GELCAP PO SCH (08:44)
[2019-04-09] MEDS: FERROUS SULFATE 325 MG TABEC PO SCH ×2 (08:45→11:28)
--- NOTE | 2019-04-09 08:47 | NUR ---
ADMINISTERED MEDS PER MD ORDER, PATIENT TOLERATED WELL. PATIENT IS AWAKE AND RESTING ON BED AT THIS TIME. DENIES PAIN, DIZZINESS AND SOB. NO SIGNS OF DISTRESS NOTED. SAFETY MEASURES IN PLACE. CALL LIGHT WITHIN REACH. INSTRUCTED PATIENT TO USE THE CALL LIGHT FOR ANY ASSISTANCE AND PATIENT WAS AWARE.
[2019-04-09 08:52] LABS: ANION GAP 12.8 (8-16)
[2019-04-09 08:53] LABS: MONOCYTES % (MANUAL) 10 % (5-12)
[2019-04-09 08:54] LABS: LYMPHOCYTES % (MANUAL) 62 % (20-46)
[2019-04-09] MEDS ORDERED: FOLIC ACID 1 MG TAB PO SCH (09:00)
--- NOTE | 2019-04-09 11:30 | NUR ---
PATIENT IS AWAKE AND RESTING ON BED AT THIS TIME. DENIES DIZZINESS, PAIN, AND SOB. RESPIRATION EVEN AND UNLABORED. NO SIGNS OF DISTRESS NOTED. SAFETY MEASURES IN PLACE. INSTRUCTED PATIENT TO USE THE CALL LIGHT FOR ANY ASSISTANCE AND PATIENT WAS AWARE.
[2019-04-09] MEDS ORDERED: FERR325E14 PO (12:17)
--- NOTE | 2019-04-09 12:45 | NUR ---
DISCHARGE DOCUMENTS HAS BEEN PREPARED AND READY TO SIGN BY PATIENT. AWAITING FOR FAMILY TO ARRIVE. PATIENT IS SITTING UP AND WATCHING TV ON BED. NO SIGNS OF DISTRESS NOTES. BED IN LOW POSITION AND CALL LIGHT WITHIN REACH.
--- NOTE | 2019-04-09 13:15 | NUR ---
PATIENT IS SITTING UP ON BED. DENIES PAIN, DIZZINESS AND SOB. NO SIGNS OF DISTRESS NOTED. SAFETY MEASURES IN PLACE. AWAITING FOR FAMILY TO ARRIVE. PER PATIENT, SHE SAID " I AM NOT SURE WHEN MY DAUGHTER WILL COME TO PICK ME UP BUT I CALL HER ALREADY." INFORMED PATIENT THAT HER DISCHARGE DOCUMENT HAS BEEN PREPARED AND READY.
--- NOTE | 2019-04-09 13:55 | NUR ---
DISCHARGE INSTRUCTION PROVIDED TO PATIENT AND DAUGHTER YANI AT BEDSIDE. EDUCATED PATIENT AND DAUGHTER YANI ON FOLLOW UP WITH MD, DISEASE MANAGEMENT, SIGNS AND SYMPTOMS, TAKE THE PRESCRIPTION MD PRESCRIBED, AND GO TO THE NEAREST EMERGENCY TO SEEK MEDICAL HELP WHEN NEEDED. ANSWERED ALL PATIENT AND DAUGHTER YANI'S QUESTIONS. PATIENT AND YANI BOTH VERBALIZED UNDERSTANDING. PROVIDED PRESCRIPTION. D/C IV AND IV CANNULA INTACT, NO BLEEDING AT IV SITE. REMOVED ALL ARM BANDS. PATIENT CHECKED ALL CABINETS AND TOOK ALL HER BELONGINGS. PATIENT IS DISCHARGE AT THIS TIME IN A STABLE CONDITION.
== END 2019-04-09 13:55 | disposition home or self-care (01) | DRG 663 ==
LOC: MED 17:12 → MTU 21:01 → OBSVTOIN 04-09 08:36
PROVIDERS: ADMIT Hospitalist; ATTEND Hospitalist
PROC: 30233N1 Transfusion of Nonautologous Red Blood Cells into Peripheral Vein, Percutaneous Approach (ICD-10-PCS; principal; 2019-04-07)
DX: D50.9 Iron deficiency anemia, unspecified (principal); E44.0 Moderate protein-calorie malnutrition; N39.0 Urinary tract infection, site not specified; I10 Essential (primary) hypertension; R31.9 Hematuria, unspecified
CPT/HCPCS: 96360; 99285; G0378; 36415; 71045; 80048; 80053; 82272; 82550; 82553; 83540; 83690; 84484; 85025; 85610; 86886; 86900; 86901; 86920; 87081; 93005; J0696; J7030; J7060; P9016; Q0092

== ENCOUNTER 2019-04-30 20:09 | Observation (INO) | payer OTHER ==
[~2019-04-30] VITALS: Ht 160 cm; Wt 69.4 kg
[~2019-04-30 20:09] MED LIST changes: +FERR325E14 PO
[2019-04-30 20:20] VITALS: BP 133/102
--- NOTE | 2019-04-30 20:35 | NUR ---
PT AMBULATED BACK OUT TO [facility].
--- NOTE | 2019-04-30 20:35 | NUR ---
SPOKETO DAUGHTER, CONTACT NUMBER IS [phone] NAME IS YANI.
--- NOTE | 2019-04-30 20:39 | NUR ---
PT AMBULATED TO BED #9
--- NOTE | 2019-04-30 20:48 | NUR ---
Dr. Khan examining patient.
--- NOTE | 2019-04-30 20:50 | NUR ---
PT TO E WITH FAMILY FOR C/O LETHARGY AND WEAKNESS. PT REPORTS HX OF LOW HGB AND RECEIVING BLOOD TRANFUSIONS IN THE PAST. PT DENIES CP AT THIS TIME. NO SOB. PT PLACED ON CARDIAC MONITORS AND PLACED INTO BED, JOHANNE WORLEY.
[2019-04-30 21:02] LABS: MEAN CORPUSCULAR HEMOGLOBIN 31 pg (27-31); MEAN CORPUSCULAR HGB CONC 34 g/dL (33-37); MEAN CORPUSCULAR VOLUME 92.1 fL (80-94); PLATELET COUNT (AUTO) 97 K/uL (140-450); RED BLOOD CELL COUNT(AUTO) 2.03 MIL/uL (4.20-5.40); RED CELL DISTRIBUTION WIDTH 15.8 % (11.6-13.7); WHITE BLOOD COUNT (AUTO) 7.2 K/uL (4.8-10.8)
[2019-04-30 21:03] LABS: HEMOGLOBIN 6.3 g/dL (12.0-16.0)
[2019-04-30 21:04] LABS: HEMATOCRIT 18.7 % (36-48)
[2019-04-30 21:11] LABS: CARBON DIOXIDE 25.3 mmol/L (21-32); POTASSIUM 4.3 mmol/L (3.5-5.1)
[2019-04-30 21:17] LABS: ALBUMIN 2.5 g/dL (3.4-5.0); TOTAL BILIRUBIN 0.3 mg/dL (0.0-1.0)
--- NOTE | 2019-04-30 21:19 | NUR ---
EKG PERFORMED AT BEDSIDE. PT COVERED INB GOWN DURING PROCEDURE
[2019-04-30 21:25] LABS: LYMPHOCYTES % (MANUAL) 57 % (20-46); MONOCYTES % (MANUAL) 17 % (5-12)
[2019-04-30] MEDS ORDERED: ACETAMINOPHEN 325 MG TAB PO PRN (21:25)
[2019-04-30] MEDS ORDERED: MORPHINE SULFATE 4 MG/ML SYR IVP PRN (21:25)
[2019-04-30] MEDS ORDERED: ONDANSETRON 4 MG/2 ML VIAL IVP PRN (21:25)
[2019-04-30] MEDS ORDERED: HYDROcodone/APAP 5/325 MG 1 TAB TAB PO PRN (21:25)
[2019-04-30] MEDS ORDERED: ALBUTEROL 0.083% 2.5 MG/3 ML NEBU IH PRN (21:25)
[2019-04-30 21:26] LABS: BLASTS, MANUAL % 2 % (0-0); METAMYELOCYTES % 1 % (0-0); PROMYELOCYTES % 2 % (0-0)
[2019-04-30 21:38] LABS: PROTHROMBIN TIME 10.3 secs (10.8-13.4)
--- NOTE | 2019-04-30 21:43 | NUR ---
US AT BEDSIDE.
--- NOTE | 2019-04-30 22:15 | NUR ---
Patient will be admitted to care of DR ORTIZ. Admited to TELE. Will go to room 106-B. Belongings list completed. Report to JOSE RAMON HANSEN.
[2019-04-30 22:30] VITALS: BP 133/53
[2019-04-30] MEDS ORDERED: FERROUS SULFATE 325 MG TABEC PO SCH (22:30)
--- NOTE | 2019-04-30 22:30 | NUR ---
RECEIVED PT FROM ER NURSE, DALTON. PT CAME WITH JUAN DAVID AND ABLE TO AMBULATE FROM ER BED TO [facility] BED. AAOX4, LAOS SPEAKING ONLY. NO GABE COMPETITIVE INTELLIGENCE MANAGER AVAILABLE. GET INFORMATION FROM PT'S DAUGHTER BY PHONE. DX SYMPTOMATIC ANEMIA. IV SITE RIGHT WRIST 20G. PATENT, INTACT, AND ASYMPTOMATIC. ORIENT ROOM TO PT. BED IN LOW POSITION, CALL LIGHT WITHIN REACH. Addendum: 05/01/19 at 0746 by Radha Alves RN OBSERVATION PT.
[2019-04-30 23:37] LABS: APPEARANCE,URINE CLEAR (CLEAR); BILIRUBIN,URINE NEGATIVE (NEGATIVE); BLOOD, URINE NEGATIVE (NEGATIVE); COLOR,URINE YELLOW (YELLOW); LEUKOCYTE ESTERASE ,URINE NEGATIVE (NEGATIVE); NITRITE, URINE NEGATIVE (NEGATIVE); UGLUCOSE NEGATIVE (NEGATIVE)
--- NOTE | 2019-05-01 | NUR ---
VS CHECKED. PT IN STABLE CONDITION. BED IN LOW POSITION. CALL LIGHT WITHIN REACH.
--- NOTE | 2019-05-01 01:40 | NUR ---
START 1ST UNIT OF BLOOD TRANSFUSION. NO ADVERSE REACTION NOTED. WILL CONTINUE TO MONITOR.
--- NOTE | 2019-05-01 03:00 | NUR ---
BLOOD TRANSFUSION STILL RUNNING. NO ADVERSE REACTION NOTED. PT SLEEPING IN BED COMFORTABLY. WILL CONTINUE TO MONITOR.
[2019-05-01 04:00] VITALS: BP 127/62
--- NOTE | 2019-05-01 05:10 | NUR ---
1ST UNIT OF BLOOD TRANSFUSION DONE. PT TOLERATED WELL.
--- NOTE | 2019-05-01 05:25 | NUR ---
START 2ND UNIT OF BLOOD TRANSFUSION. NO ADVERSE REACTION NOTED. WILL CONTINUE TO MONITOR.
--- NOTE | 2019-05-01 07:11 | NUR ---
ENDORSED PT TO DAY SHIFT NURSENAZIA. 2ND UNIT OF BLOOD TRANSFUSION STILL RUNNING. PT IN STABLE CONDITION.
--- NOTE | 2019-05-01 07:12 | NUR ---
RECEIVED REPORT FROM FX ARTIST NURSE. PATIENT LYING DOWN IN BED WATCHING TV. NO DISTRESS NOTED. 2ND UNIT OF PRBC CURRENTLY INFUSING. AAOX4, CALM, COOPERATIVE, SKIN COLOR APPROPRIATE TO ETHNICITY, WARM TO TOUCH. SKIN INTACT. AMBULATED TO BATHROOM AND BACK TO BED WITH STEADY GAIT. IV SITE INTACT, PATENT, AND INFUSING BLOOD AT THIS TIME. REVIEWED PLAN OF CARE WITH PATIENT. PATIENT VERBALIZED UNDERSTANDING. SAFETY MEASURES IN PLACE, CALL LIGHT WITHIN REACH. WILL CONTINUE TO MONITOR.
[2019-05-01 08:00] VITALS: BP 129/68
--- NOTE | 2019-05-01 08:25 | NUR ---
2ND UNIT OF PRBC FINISHED AT THIS TIME. NO REACTION NOTED. WILL CONITNUE TO MONITOR.
--- NOTE | 2019-05-01 08:46 | NUR ---
PATIENT HAS BEEN SCREENED AND CATEGORIZED MODERATE NUTRITION RISK. PATIENT WILL BE SEEN WITHIN 3-5 DAYS OF ADMISSION. 05/03/19[address]
[2019-05-01] MEDS ORDERED: MULTIVITAMIN 1 TAB PO SCH (09:00)
[2019-05-01] MEDS: FERROUS SULFATE 325 MG TABEC PO SCH ×2 (09:32→12:34)
--- NOTE | 2019-05-01 09:32 | NUR ---
PATIENT SITTING DOWN IN BED WATCHING TV. NO DISTRESS NOTED. DENIES ANY PAIN. NO BLOOD TRANSFUSION REACTION NOTED. SCHEDULED MEDICATIONS DUE GIVEN. WILL CONTINUE TO MONITOR.
--- NOTE | 2019-05-01 10:15 | NUR ---
DR. YOUNGBLOOD AT BEDSIDE REVIEWING PLAN OF CARE WITH PATIENT. WILL CONTINUE TO MONITOR.
[2019-05-01 11:44] LABS: PLATELET COUNT (AUTO) 82 K/uL (140-450)
[2019-05-01 11:49] LABS: ANION GAP 13.9 (8-16); CARBON DIOXIDE 25.6 mmol/L (21-32); POTASSIUM 4.5 mmol/L (3.5-5.1)
[2019-05-01 11:51] LABS: HEMATOCRIT 27.7 % (36-48); MEAN CORPUSCULAR HEMOGLOBIN 31 pg (27-31); MEAN CORPUSCULAR HGB CONC 33 g/dL (33-37); MEAN CORPUSCULAR VOLUME 92.1 fL (80-94); RED CELL DISTRIBUTION WIDTH 14.5 % (11.6-13.7); WHITE BLOOD COUNT (AUTO) 5.4 K/uL (4.8-10.8)
[2019-05-01 11:53] LABS: MAGNESIUM 2.5 mg/dL (1.8-2.4); PHOSPHORUS 3.9 mg/dL (2.5-4.9)
[2019-05-01 11:56] LABS: HEMOGLOBIN 9.2 g/dL (12.0-16.0)
[2019-05-01 12:00] VITALS: BP 137/71
[2019-05-01 12:10] LABS: LYMPHOCYTES % (MANUAL) 55 % (20-46); MONOCYTES % (MANUAL) 17 % (5-12)
--- NOTE | 2019-05-01 12:35 | NUR ---
PATIENT SITTING WITH LUNCH TRAY IN FRONT. NO DISTRESS NOTED. DENIES ANY PAIN. SCHEDULED MEDICATIONS DUE GIVEN. WILL CONTINUE TO MONITOR.
--- NOTE | 2019-05-01 15:42 | NUR ---
CONTACTED BINH WALL AT [phone], ABLE TO SPEAK TO ELIS. SHE PROVIDED ME A FOLLOW UP VISIT FOR THE PATIENT ON MONDAY MAY 06, 2019 AT 1400, CLINIC ADDRESS [id number] COPY OF FOLLOW UP VISIT PROVIDED TO PATIENT.
--- NOTE | 2019-05-01 17:45 | NUR ---
PATIENT'S GRANDSON AT BEDSIDE READY TO TAKE PATIENT HOME. DISCHARGE INSTRUCTIONS PROVIDED TO GRANDSON IN [place], PATIENT PREFERRED GRANDSON TO TRANSLATE INSTEAD OF USING LUMBER TRIMMER PHONE. ANSWERED ALL OF PATIENT/FAMILY QUESTIONS REGARDING DISCHARGE. PATIENT/FAMILY VERBALIZED COMPLETE UNDERSTANDING. IV SITE REMOVED WITH MINIMAL BLOOD AND LUMEN COMPLETELY INTACT. ID BANDS REMOVED. PATIENT TO GET DRESSED AND THEN GO HOME. WILL CONTINUE TO MONITOR.
--- NOTE | 2019-05-01 18:00 | NUR ---
PATIENT ALL DRESSED. ESCORTED PATIENT TO LOBBY VIA STEADY AMBULATION. PATIENT DISCHARGED TO HOME AT THIS TIME IN PRIVATE VEHICLE WITH GRANDSON.
== END 2019-05-01 18:00 | disposition home or self-care (01) ==
LOC: MED 20:09 → MTU 21:27
PROVIDERS: ADMIT Internal Medicine Pulmonary Disease; ATTEND Internal Medicine Pulmonary Disease
DX: D64.9 Anemia, unspecified (principal); R42 Dizziness and giddiness; R53.1 Weakness; D69.6 Thrombocytopenia, unspecified
CPT/HCPCS: 36415; 71045; 76700; 80048; 80053; 81003; 82272; 82728; 83540; 83605; 83690; 83735; 83880; 84100; 84484; 85025; 85610; 85730; 86886; 86900; 86901; 86920; 87040; 87081; 87086; 93005; 94760; 99285; G0378; J7030; P9016; Q0092

== ENCOUNTER 2019-05-20 09:56 | Observation (INO) | payer OTHER ==
[~2019-05-20] VITALS: Ht 157.5 cm; Wt 65.4 kg
[2019-05-20 10:00] VITALS: BP 141/95
--- NOTE | 2019-05-20 10:05 | NUR ---
Patient ambulated to bed 2 with family. RN evaluating patient at bedside.
--- NOTE | 2019-05-20 10:46 | NUR ---
Dr. Dennison evaluating patient at bedside.
--- NOTE | 2019-05-20 10:50 | NUR ---
ED MD BEDSIDE TO ASSESS PT.
[2019-05-20 11:13] LABS: HEMATOCRIT 20.7 % (36-48); HEMOGLOBIN 7.2 g/dL (12.0-16.0); MEAN CORPUSCULAR HEMOGLOBIN 32 pg (27-31); MEAN CORPUSCULAR HGB CONC 35 g/dL (33-37); MEAN CORPUSCULAR VOLUME 91.5 fL (80-94); PLATELET COUNT (AUTO) 77 K/uL (140-450); RED BLOOD CELL COUNT(AUTO) 2.26 MIL/uL (4.20-5.40); RED CELL DISTRIBUTION WIDTH 14.2 % (11.6-13.7); WHITE BLOOD COUNT (AUTO) 3.9 K/uL (4.8-10.8)
--- NOTE | 2019-05-20 11:18 | NUR ---
SL ESTABLISHED ON RFA. BLOOD DRAWN BY THE WAY.
[2019-05-20 11:28] LABS: ANION GAP 11.5 (8-16); CARBON DIOXIDE 27.6 mmol/L (21-32); POTASSIUM 4.1 mmol/L (3.5-5.1)
[2019-05-20 11:29] LABS: PROTHROMBIN TIME 10.4 secs (10.8-13.4)
[2019-05-20 11:38] LABS: LYMPHOCYTES % (MANUAL) 58 % (20-46); MONOCYTES % (MANUAL) 13 % (5-12)
[2019-05-20 11:41] LABS: ALBUMIN 2.3 g/dL (3.4-5.0); THYROID STIMULATING HORMONE 1.72 uIU/mL (0.34-3.74); TOTAL BILIRUBIN 0.4 mg/dL (0.0-1.0)
[2019-05-20 12:53] LABS: APPEARANCE,URINE CLEAR (CLEAR); BILIRUBIN,URINE NEGATIVE (NEGATIVE); BLOOD, URINE NEGATIVE (NEGATIVE); COLOR,URINE YELLOW (YELLOW); LEUKOCYTE ESTERASE ,URINE TRACE (NEGATIVE); NITRITE, URINE NEGATIVE (NEGATIVE); UGLUCOSE NEGATIVE (NEGATIVE)
[2019-05-20 13:09] LABS: RBC,URINE 0-5 /HPF (0-5); WBC,URINE 0-5 /HPF (0-5)
--- NOTE | 2019-05-20 14:14 | NUR ---
[facility] IS AWARE OF THE SOCIAL CARE REQUEST. THEY WILL F/U WITH INSURANCE AND F/U WITH PT
--- NOTE | 2019-05-20 14:30 | NUR ---
IS AWARE OF PT AFTER SPEAKING WITH ER PHYSICIAN. DOES NOT FEEL PT WOULD BE BETTER SERVED AN ADMISSION AT THIS TIME AND IS RECOMMENDING SHE F/U WITH PMD WITHIN THIS WEEK. NOTIFIED
--- NOTE | 2019-05-20 14:50 | NUR ---
PT ADMITED TO M/S. ROOM OBTAINED 107B. PT WAS SENT TO M/S. BUT ATTENDING DR. TUTTLE INSTRUCTED TO D/C PT IN ER. PT WAS BROUGHT BACK TO ED. DR. TUTTLE WAS CALLED AGAIN BY [facility]. DR. TUTTLE WANTED PT TO BE DC'D HOME THEN FOLLOWUP WITH PMD TOMORROW. PT'S DAUGHTER WAS CALLED AND UPDATED. BUT DAUGHTER SAID PMD WASN'T HOME UNTIL 05/27/19. THIS IS WHY PT WAS SENT TO ER. CN RJ AND ED MD LINK WAS NOTIFIED STATUS.
--- NOTE | 2019-05-20 15:10 | NUR ---
PT IS TO BE DISCHARGED FROM ER BY ---NO ADMISSION REQUIRED PER PARAG KHAN AT THIS TIME.
--- NOTE | 2019-05-20 15:31 | NUR ---
PER PARAG MORALES. PT WAS D/C'D HOME. DAUGHTER WAS TAOUGHT EXPLAINED ON PHONE. DAUGHTER STATED UNDERSTANDING. PT WAS DC'D HOME.
[2019-05-20 15:32] VITALS: BP 116/75
== END 2019-05-20 15:31 | disposition home or self-care (01) ==
LOC: MED 09:56 → MTU 13:42
PROVIDERS: ADMIT Internal Medicine Pulmonary Disease; ATTEND Internal Medicine Pulmonary Disease
DX: D50.9 Iron deficiency anemia, unspecified (principal); D69.6 Thrombocytopenia, unspecified
CPT/HCPCS: 36415; 36430; 71045; 80053; 81001; 83735; 84443; 84484; 85025; 85610; 85730; 86886; 86900; 86901; 86920; 93005; 99291; G0378; Q0092